=== PATIENT | male | born 1980 | race Caucasian/White ===

== ENCOUNTER 2021-12-28 07:29 | Outpatient (RCR) | payer BC, SELFPAY | END 2022-04-02 09:37 | disposition home or self-care (01) | PROVIDERS: PCP Internal Medicine; Visit Provider Orthopaedic Surgery | DX: M17.11 Unilateral primary osteoarthritis, right knee (principal); M25.561 Pain in right knee; Z51.89 Encounter for other specified aftercare | CPT/HCPCS: 97110; 97140; 97535 ==

== ENCOUNTER 2022-03-07 08:06 | Outpatient (CLI) | payer BC, SELFPAY ==
--- OUTSIDE RECORDS SUMMARY | 2022-03-07 08:09 | XMS_ITS | Clinical Summary ---
:1980 Author Organization [facility] [place] [address] Care Team Providers Name Role Phone Yonatan Pettit MD Primary Care Provider Allergies Active Allergy Reactions Severity Noted Date Comments Penicillins Rash 02/26/2013 Medications No known medications Active Problems Problem Noted Date DEYSI (obstructive sleep apnea) 11/11/2018 Snoring 09/25/2018 Tiredness 09/25/2018 Palpitations 09/25/2018 Nicotine abuse 09/25/2018 Morbid obesity due to excess calories 09/25/2018 Social History Tobacco Use Types Packs/Day Years Used Date Current Every Day Smoker 0.5 12 Smokeless Tobacco: Never Used Tobacco Cessation: Ready to Quit: No; Co unseling Given: Yes Alcohol Use Standard Drinks/Week Comments Not Asked 0 (1 standard drink = 0.6 oz pure alcoho l) Sex Assigned at Date Recorded Not on file Obstetrics History Last Filed Vital Signs Vital Sign Reading Time Taken Comments Blood Pressure 142/90 04/07/2013 9:28 AM CDT Pulse 69 04/07/2013 9:28 AM CDT Temperature 36.8 ??C (98.3 ??F) 04/07/2013 9:28 AM CDT Respiratory Rate - - Oxygen Saturation 94% 04/07/2013 9:28 AM CDT Inhaled Oxygen Concentration - - Weight 161.7 kg (356 lb 6.4 oz) 04/07/2013 9:28 AM CDT Height 210.8 cm (6' 11) 04/07/2013 9:28 AM CDT Body Mass Index 36.37 04/07/2013 9:28 AM CDT Plan of Treatment Health Maintenance Due Date Last Done Comments COVID-19 vaccine series (#1) 04/17/1979 Tdap 1989 Depression screening for age 12+ 1990 BMI (ht and wt on same day) for age 18+ 1996 Hepatitis C screening for age 18-79 1996 Tetanus booster 1998 Lipids for age 35-44 2013 Influenza for age 9-49 02/07/2022 Results Not on filefrom Last 3 Months Insurance Payer Benefit Plan / Subscriber ID Effective Dates Phone Addre ss Type Group [employer] [employer] [place] [employer] [id number] 2018-Present [address] [address] [place] [address] Care Teams Crook Operator Relationship Specialty Start Date End Date Yonatan Pettit MD PCP - General Family Practice 03/16/13
[2022-03-07 11:13] LABS: Albumin* 4.5 g/dL (3.3-5.0); Chloride* 105 mmol/L (96-114)
[2022-03-07 11:14] LABS: Potassium* 4.9 mmol/L (3.6-5.1); Sodium* 139 mmol/L (135-149)
[2022-03-07 11:16] LABS: Bilirubin Total* 0.6 mg/dL (0.1-1.5); Blood Urea Nitrogen* 19 mg/dL (5-24); Carbon Dioxide* 27 mmol/L (20-32); Cholesterol* 161 mg/dL (90-199); Estimated Glomerular Filt Rate 96 ml/min; Total Protein* 7.1 g/dL (6.0-8.3)
[2022-03-07 11:17] LABS: Alanine Aminotransferase* 29 U/L (4-50); Alkaline Phosphatase* 52 U/L (40-150); Aspartate Amino Transferase* 24 U/L (12-35); Calcium* 9.7 mg/dL (8.4-10.6); Glucose* 99 mg/dL (60-115); HDL Cholesterol* 72 mg/dL (>=40); LDL Cholesterol Calculated 81 mg/dL (<100); Triglycerides* 41 mg/dL (40-149)
[2022-03-08 14:40] LABS: Sex Hormone Binding Globulin 55 nmol/L (17-56); Testosterone, Adult Male 638 ng/dL (300-890); Testosterone, Bioavailable 267 ng/dL (131-682); Testosterone, Free Calculation 88 pg/mL (47-244); Testosterone, Percentage Free 1.4 % (1.6-2.9)
== END 2022-03-07 08:07 | disposition home or self-care (01) ==
PROVIDERS: PCP Internal Medicine; Visit Provider Internal Medicine
DX: Z00.00 Encounter for general adult medical examination without abnormal findings (principal); Z13.9 Encounter for screening, unspecified; Z13.6 Encounter for screening for cardiovascular disorders
CPT/HCPCS: 80053; 80061; 84270; 84402; 84403